=== PATIENT | female | born 1965 | race Caucasian/White ===

== ENCOUNTER 2019-12-03 11:39 | Emergency (ER) | payer BC, SELFPAY ==
--- NOTE | 2019-12-03 11:44 | ED_ITS ---
Entered by Carolyn Fuentes, acting as scribe for Chris Rojas DO HPI - Neuro Symptoms/Deficit General: Chief Complaint: Neuro Symptoms/Deficit Stated Complaint: TINGLE NUMBNESS R SIDE MOUTH & ARM Time Seen by Provider: 12/03/19 11:44 Source: patient Mode of arrival: EMS Limitations: no limitations History of Present Illness: HPI Narrative: 54 yo f came to the er by [facility] Ems For numbness and paul in rt side of face and arm. Onset was today. Pt states that she was setting at her computer and she started to feel light headed and her mouth and rt arm numbness. Pt states that she had slid down into the floor unable to walk at that time. Pts symptoms have almost resolved. Pt states that she had surgery on her rt foot in October of this year. Pt states that she is not feeling ill any other way. Onset (ago): day(s) (today) Location: right arm and other (rt side of mouth) History of same: No Severity: mild Quality: numb and tingling Relieving factors: none Exacerbating factors: none Context: sudden onset Associated symptoms: Reports no associated symptoms; Deny chest pain, malaise, nausea or vomiting Review of Systems General: Reports: other (negative unless marked) Const: Denies: fever, chills, body aches, change in appetite, fatigue or malaise ENMT: Denies: throat pain, ear pain, nasal discharge or nasal congestion Card: Denies: chest pain, edema, shortness of breath on exertion or shortness of breath when lying down Resp: Denies: shortness of breath, productive cough or non-productive cough GI: Denies: abdominal pain, nausea, vomiting, vomiting blood, coffee grounds in vomit, diarrhea, constipation, bloating, blood in stool or black tarry stool : Denies: flank pain, difficulty urinating, painful urination, urinary frequency or urinary urgency Skin/Breast: Denies: rash or itching Neuro: Reports: numbness in extremities (rt arm) PFSH ED PFSH: Social History Smoking and tobacco status: never smoked NIH stroke score NIHSS: Level Of Consciousness - 1a: 0 Level Of Consciousness Questions - 1b: Both Correct Level Of Consciousness Commands - 1c: Both Correct Best Gaze - 2: Normal Visual Mendoza - 3: No Visual Loss Facial Palsy - 4: Normal Motor Arm Right - 5: No Drift Motor Arm Left - 5: No Drift Motor Leg Right - 6: No Drift Motor Leg Left - 6: No Drift Limb Ataxia - 7: Absent Sensory - 8: Mild To Moderate Loss Best Language - 9: No Aphasia Dysarthia - 10: Normal Extinction And Inattention - 11: 0 Score: Total Score: 1 Physical Exam Const: COMMON NORMALS: average body habitus, oriented x3 and alert GENERAL APPEARANCE: cooperative, comfortable, well kempt and well developed NUTRITIONAL APPEARANCE: obese ORIENTATION/CONSCIOUSNESS: Yes awake, Yes oriented to person and Yes oriented to place HENMT: COMMON NORMALS: normocephalic, head/scalp atraumatic, EAC's normal, TM's normal bilaterally, external nose normal, moist oral mucous membranes and oropharynx normal HEAD & SCALP: normocephalic and atraumatic NOSE: external nose normal EXTERNAL AUDITORY CANAL: EAC's normal TYMPANIC MEMBRANE: TM's normal bilaterally MOUTH: oral and palatal mucosa normal, lip normal and tongue normal THROAT: posterior oropharynx normal and tonsils normal OTHER: Subtle decreased sensation on the right side of the face mostly around the mouth. Sensation on the eye and forehead are normal Eye: COMMON NORMALS: PERRL, EOMs intact bilaterally, conjunctivae normal and no scleral icterus CONJUNCTIVA: Yes conjunctivae normal PUPIL: Yes PERRL Neck/C-Spine: COMMON NORMALS: full ROM, no lymphadenopathy, supple, no meningeal signs and thyroid normal THYROID: thyroid normal and asymmetrical Lymph: LYMPHATIC: no lymphadenopathy noted Resp: COMMON NORMALS: normal respiratory effort, no retractions, no use of accessory muscles and clear to auscultation bilaterally AUSCULTATION: clear to auscultation bilaterally Cardio: COMMON NORMALS: regular rate and regular rhythm RATE: regular rate RHYTHM: regular rhythm HEART SOUNDS: no murmurs GI: COMMON NORMALS: normal to inspection, nondistended, normoactive bowel sounds, soft to palpation and no hepatosplenomegaly PALPATION: Yes soft and Yes no hepatosplenomegaly : COMMON NORMALS: Yes no CVA tenderness BLADDER/KIDNEY EXAM: Yes no CVA tenderness Back/Pelvis: COMMON NORMALS: no CVA tenderness LUMBAR SPINE/LOWER BACK: Yes normal to inspection Extremity: COMMON NORMALS: no clubbing, cyanosis or edema, no calf tenderness and no pedal edema Neuro: COMMON NORMALS: oriented x3 SENSORIUM/ORIENTATION: Yes alert, Yes oriented to person and Yes oriented to place MENINGEAL SIGNS: Yes no meningeal signs Psych: APPEARANCE: Yes well kempt Skin: COMMON NORMALS: no rashes or lesions noted and skin turgor normal GENERAL SKIN EXAM: no rashes or lesions noted and turgor normal Course ED course: Her symptoms have resolved. Her blood pressure somewhat better with a systolic of 180. We will go ahead and discharge her home with amlodipine 5 mg daily aspirin daily set up for outpatient echo carotid and MRI of the head. In addition to that we will have her follow-up with her blood pressure and the results of these tests with Dr. Holliday. Vital Signs: Vital signs: Vital Signs Temperature 98.4 F 12/03/19 11:46 Pulse Rate 79 12/03/19 11:46 Blood Pressure 222/112 12/03/19 11:46 Pulse Oximetry 99 12/03/19 11:46 MDM - Neuro Symptoms/Deficit Lab Data: Labs: Lab Results 12/03/19 12/03/19 12/03/19 Range/Units 12:43 12:43 13:15 WBC 9.0 (4.0-10.0) 10^3/ uL RBC 4.31 (4.1-5.3) 10^6/u L Hgb 12.7 (11.5-15.3) g/dL Hct 39.7 (37.0-47.0) % MCV 92.1 (81-99) fL MCH 29.5 (28.0-34.0) pg MCHC 32.0 (30.0-36.0) g/dL RDW 12.2 (12.1-15.1) % Plt Count 326 (130-400) 10^3/c mm MPV 10.2 (7.4-10.4) fL Neut % (Auto) 75.5 % Lymph % (Auto) 17.0 % Dillon % (Auto) 5.3 % Eos % (Auto) 1.2 % Baso % (Auto) 0.7 % Neut # (Auto) 6.8 (1.8-7.7) 10^3/u L Lymph # (Auto) 1.5 (0.8-4.8) 10^3/u L Dillon # (Auto) 0.5 (0.2-0.9) 10^3/u L Eos # (Auto) 0.1 (0.0-0.8) 10^3/u L Baso # (Auto) 0.1 (0.0-0.1) 10^3/u L Nucleated RBC % (a uto) 0 % Nucleated RBCs # 0.0 /100WBC PT (10.5-13.3) SECO NDS INR (0.8-1.2) APTT (23.9-36.7) SECO NDS Sodium (136-145) mmol/L Potassium (3.5-5.1) mmol/L Chloride (98-107) mmol/L Carbon Dioxide (22-29) mmol/L Anion Gap (5-19) BUN (6-20) mg/dL Creatinine (0.5-0.9) mg/dL GFR Calculation (90-130) mL/min Glucose (65-115) mg/dL Calcium (8.5-10.5) mg/dL Total Bilirubin (0.15-1.2) mg/dL AST (0-32) U/L ALT (0-33) U/L Alkaline Phosphata se (35-105) IU/L Total Protein (6.6-8.7) g/dL Albumin (3.5-5.2) g/dL Globulin (1.3-4.6) g/dL Urine Color Yellow (Yellow) Urine Appearance Clear (CLEAR) Urine pH 6 (5-7) Ur Specific Gravit y 1.015 (1.005-1.030) Urine Protein Neg (Negative) Urine Glucose (UA) Norm (Normal) Urine Ketones Negative (Negative) Urine Blood Neg (Negative) Urine Nitrate Negative (Negative) Urine Bilirubin Neg (NEGATIVE) Urine Urobilinogen Norm (Negative) mg/dL Ur Leukocyte Tory ase Negative (Negative) Urine Opiates Scre en Negative (Negative) ng/mL Ur Barbiturates Sc reen Negative (Negative) ng/mL Ur Phencyclidine S crn Negative (Negative) ng/mL Ur Amphetamines Sc reen Negative (Negative) ng/mL U Benzodiazepines Scrn Negative (Negative) ng/mL Urine Cocaine Scre en Negative (Negative) ng/mL U Marijuana (THC) Screen Negative (Negative) ng/mL 12/03/19 12/03/19 Range/Units 13:15 13:15 WBC (4.0-10.0) 10^3/ uL RBC (4.1-5.3) 10^6/u L Hgb (11.5-15.3) g/dL Hct (37.0-47.0) % MCV (81-99) fL MCH (28.0-34.0) pg MCHC (30.0-36.0) g/dL RDW (12.1-15.1) % Plt Count (130-400) 10^3/c mm MPV (7.4-10.4) fL Neut % (Auto) % Lymph % (Auto) % Dillon % (Auto) % Eos % (Auto) % Baso % (Auto) % Neut # (Auto) (1.8-7.7) 10^3/u L Lymph # (Auto) (0.8-4.8) 10^3/u L Dillon # (Auto) (0.2-0.9) 10^3/u L Eos # (Auto) (0.0-0.8) 10^3/u L Baso # (Auto) (0.0-0.1) 10^3/u L Nucleated RBC % (a uto) % Nucleated RBCs # /100WBC PT 13.20 (10.5-13.3) SECO NDS INR 0.97 (0.8-1.2) APTT 29.2 (23.9-36.7) SECO NDS Sodium 140 (136-145) mmol/L Potassium 4.0 (3.5-5.1) mmol/L Chloride 103 (98-107) mmol/L Carbon Dioxide 24 (22-29) mmol/L Anion Gap 17.0 (5-19) BUN 11 (6-20) mg/dL Creatinine 1.0 H (0.5-0.9) mg/dL GFR Calculation 57.8 L (90-130) mL/min Glucose 115 (65-115) mg/dL Calcium 9.8 (8.5-10.5) mg/dL Total Bilirubin 0.3 (0.15-1.2) mg/dL AST 21 (0-32) U/L ALT 28 (0-33) U/L Alkaline Phosphata se 92 (35-105) IU/L Total Protein 7.4 (6.6-8.7) g/dL Albumin 4.2 (3.5-5.2) g/dL Globulin 3.2 (1.3-4.6) g/dL Urine Color (Yellow) Urine Appearance (CLEAR) Urine pH (5-7) Ur Specific Gravit y (1.005-1.030) Urine Protein (Negative) Urine Glucose (UA) (Normal) Urine Ketones (Negative) Urine Blood (Negative) Urine Nitrate (Negative) Urine Bilirubin (NEGATIVE) Urine Urobilinogen (Negative) mg/dL Ur Leukocyte Tory ase (Negative) Urine Opiates Scre en (Negative) ng/mL Ur Barbiturates Sc reen (Negative) ng/mL Ur Phencyclidine S crn (Negative) ng/mL Ur Amphetamines Sc reen (Negative) ng/mL U Benzodiazepines Scrn (Negative) ng/mL Urine Cocaine Scre en (Negative) ng/mL U Marijuana (THC) Screen (Negative) ng/mL Imaging Data^: CT Head: Radiologist's impression: [place] [address] CT Scan Report Signed Patient: Jose Alfredo Mcclellan #: [id number] : 1965Acct#:[id number] Age/Sex: 54 / FADM Date: 12/03/19 Loc: ERRoom/Bed: Attending Dr: Ordering Provider/Ordering MD: Chris Rojas DO Date of Service: 12/03/19 Procedure(s): CT head wo con* [id number] Accession Number(s): [id number] Report Number: [id number] WS: [id number] CT HEAD NONCONTRAST HISTORY: Symptoms of Acute Stroke TECHNIQUE: Contiguous axial imaging performed through the brain in 2.5 mm imaging. Bone and soft tissue windows. Sagittal and coronal reformats reviewed. All CT scans at [facility] use at least one of these dose optimization techniques: automated exposure control; mA and/or kV adjustment per patient size (includes targeted exams where dose is matched to clinical indication); or iterative reconstruction. DLP: 873.63 mGy.cm COMPARISON: None available. No acute intracranial hemorrhage, midline shift or mass effect. Prior lacunar infarcts in the basal ganglia versus prominent perivascular spaces. No atrophy or prior infarcts or herniation. Ventricles: Normal size with no hydrocephalus. Cavum septum pellucidum. No inferior displacement of cerebellar tonsils. Paranasal sinuses: As visualized are clear. Mastoid air cells: Well pneumatized. Calvarium and scalp: Skull is intact with no soft tissue edema or swelling. Notified Chris Rojas DO at 12/03/2019 1:[address]/CT head wo con* [id number] IMPRESSION: 1. No acute intracranial hemorrhage or edema. 2. Prior lacunar infarcts in the basal ganglia versus prominent perivascular spaces. Dictated By:Vikki Moore DO Signed By:Vikki Moore DOSigned Date/Time:12/03/19 1323 Discharge Plan Discharge Clinical Impression: Transient cerebral ischemia, Hypertension Condition: Stable Prescriptions: New amlodipine 5 mg tablet 5 mg PO DAILY Qty: 20 RF: 0 aspirin 81 mg tablet,delayed release (DR/EC) 81 mg PO DAILY Qty: 30 RF: 0 No Action No Known Home Medications RF: 0 Discharge Orders: Discharge Order (Routine); Ordered 12/03/19 Ordered By: Chris Rojas Referrals: Devi Holliday MD [Family Provider] - Discharge Diet: Usual diet Discharge Activity: Resume usual activity Activity Restrictions/Additional Instructions: Follow-up with your primary care doctor for further evaluation within the next 1 week. You also need follow-up on your blood pressure. Coding Level of Care Code ED Spring Floor Service Worker for Chg Fwd Exam Comprehensive The documentation recorded by the Alfredo lewis Stephanie Lyn, accurately reflects the service I personally performed and the decisions made by Crystal castaneda Curtis L, DO Dec 03, 2019 11:39
[2019-12-03 11:46] VITALS: BP 222/112; PULSE 79; TEMP 36.9; O2SAT 99; BMI 36.0
--- NOTE | 2019-12-03 12:03 | CT_ITS ---
WS: [id number] CT HEAD NONCONTRAST HISTORY: Symptoms of Acute Stroke TECHNIQUE: Contiguous axial imaging performed through the brain in 2.5 mm imaging. Bone and soft tiss ue windows. Sagittal and coronal reformats reviewed. All CT scans at [facility] use at ast one of these dose optimization techniques: automated exposure control; mA and/or kV adjustment pe r patient size (includes targeted exams where dose is matched to clinical indication); or iterative r econstruction. DLP: 873.63 mGy.cm COMPARISON: None available. No acute intracranial hemorrhage, midline shift or mass effect. Prior lacunar infarcts in the basal g anglia versus prominent perivascular spaces. No atrophy or prior infarcts or herniation. Ventricles: Normal size with no hydrocephalus. Cavum septum pellucidum. No inferior displacement of cerebellar tonsils. Paranasal sinuses: As visualized are clear. Mastoid air cells: Well pneumatized. Calvarium and scalp: Skull is intact with no soft tissue edema or swelling. Notified Chris Rojas DO at 12/03/2019 1:[address]/CT head wo con* [id number] IMPRESSION: 1. No acute intracranial hemorrhage or edema. 2. Prior lacunar infarcts in the basal ganglia versus prominent perivascular s paces.
--- NOTE | 2019-12-03 12:03 | ECG_ITS ---
Measurements Intervals [place] Rate: 67 P: 56 WA: 154 QRS: 44 QRSD: 98 T: 86 QT: 413 QTc: 439 SINUS RHYTHM WITH OCCASIONAL SUPRAVENTRICULAR PREMATURE COMPLEXES NONSPECIFIC ST & T-WAVE ABNORMALITY No previous ECG available for comparison Electronically Signed On 12-03-2019 16:50:22 REFUELING RAMP ATTENDANT by Willi Ríos M.D. [email or web address]
[2019-12-03 12:53] LABS: Add Urine Microscopic? NO
[2019-12-03] MEDS: labetalol 5 mg/mL SDV 20mL 10 MG IV (12:56)
[2019-12-03 13:17] LABS: Amphetamines Screen Urine Negative (Negative); Barbiturates Screen Urine Negative (Negative); Benzodiazepines Screen Urine Negative (Negative); Cocaine Screen Urine Negative (Negative); Opiate Screen Urine Negative (Negative); PCP Screen Urine Negative (Negative); THC Screen Urine Negative (Negative)
[2019-12-03 13:20] LABS: Bilirubin Urine Neg (NEGATIVE); Blood Urine Neg (Negative); Glucose Urine UA Norm (Normal); Ketones Urine Negative (Negative); Leukocyte Esterase Urine Negative (Negative); Nitrate Urine Negative (Negative); Protein Urine Neg (Negative); Specific Gravity, Urine 1.015 (1.005-1.030); Urine Appearance Clear (CLEAR); Urine Color Yellow (Yellow); Urobilinogen Urine Norm (Negative); pH Urine 6 (5-7)
[2019-12-03 13:24] LABS: Basophils # 0.1 10^3/uL (0.0-0.1); Basophils % 0.7 %; Eosinophils # 0.1 10^3/uL (0.0-0.8); Eosinophils % 1.2 %; Hematocrit 39.7 % (37.0-47.0); Hemoglobin 12.7 g/dL (11.5-15.3); Lymphocytes # 1.5 10^3/uL (0.8-4.8); Mean Corpuscular Hemoglobin 29.5 pg (28.0-34.0); Mean Corpuscular Volume 92.1 fL (81-99); Mean Platelet Volume 10.2 fL (7.4-10.4); Monocytes # 0.5 10^3/uL (0.2-0.9); Monocytes % 5.3 %; Neutrophils # 6.8 10^3/uL (1.8-7.7); Neutrophils % 75.5 %; Nucleated Red Blood Cells % 0 %; Platelet Count 326 10^3/cmm (130-400); Red Blood Count 4.31 10^6/uL (4.1-5.3); Red Cell Distribution Width 12.2 % (12.1-15.1)
[2019-12-03 14:15] LABS: INR 0.97 (0.8-1.2); Partial Thromboplastin Time 29.2 SECONDS (23.9-36.7)
[2019-12-03 14:39] LABS: Alanine Aminotransferase 28 U/L (0-33); Albumin Level 4.2 g/dL (3.5-5.2); Alkaline Phosphatase 92 IU/L (35-105); Aspartate Amino Transferase 21 U/L (0-32); Blood Urea Nitrogen 11 mg/dL (6-20); Calcium 9.8 mg/dL (8.5-10.5); Carbon Dioxide 24 mmol/L (22-29); Chloride 103 mmol/L (98-107); Globulin 3.2 g/dL (1.3-4.6); Glomerular Filtration Rate 57.8 mL/min (90-130); Glucose 115 mg/dL (65-115); Sodium 140 mmol/L (136-145); Total Bilirubin 0.3 mg/dL (0.15-1.2); Total Protein 7.4 g/dL (6.6-8.7)
[2019-12-03 15:32] VITALS: BP 172/83; PULSE 71; RESP 20; O2SAT 98
--- NOTE | 2019-12-05 10:08 | DCPLANNER ---
kennel manager dog track had message to schedule some out patient testing for an MRI of the head, an echo, and a carotid doppler. kennel manager dog track spoke with patient to confirm that patient did want the testing and to confirm who patient sees for primary care. Patient stated that she want the testing, and her primary care physician is Dr. Holliday. Patient also stated that she thought that her primary care may be ordering those tests as well. kennel manager dog track faxed orders to centralized scheduling, will call for appointment information.
--- NOTE | 2019-12-12 08:16 | DCPLANNER ---
Patient has a follow up appointment scheduled for Tuesday, December 31, 2019 at 8:00. Centralized scheduling called patient with appointment information.
--- NOTE | 2020-02-24 07:39 | DCPLANNER ---
Patient attended the appointments for a carotid doppler and echo scheduled for 12.31.19.
== END 2019-12-03 15:32 | disposition home or self-care (01) ==
PROVIDERS: Emergency Provider Family Medicine; Family Provider Family Medicine
DX: G45.9 Transient cerebral ischemic attack, unspecified (principal); I10 Essential (primary) hypertension
CPT/HCPCS: 36415; 70450; 80053; 80307; 81003; 85025; 85610; 85730; 93005; 96374; 99283; 99284; J3490

== ENCOUNTER 2019-12-31 07:11 | Outpatient (CLI) | payer BC, SELFPAY ==
--- NOTE | 2019-12-31 | USCV_ITS ---
Barbi Mcclellan Age: 54 Gender: F : 1965 Exam Date: 12/31/2019 07:30 Ordering Phys: Devi Holliday MD Technologist: Lorraine Reinoso Exam Location: [facility] [place]_ Indication: tia Risk Factors: Previous Vascular Surgery: Right Brachial BP: / Left Brachial BP: / Right Left Velocity (cm/s) Spectral Plaque Velocity (cm/s) Spectral Plaque Syst/Diast Broadening Syst/Diast Broadening 56.20/ 23.20 Prox CCA 54.90 / 18.90 48.50/ 14.30 Mid CCA 60.10 / 22.00 58.40/ 20.90 Distal CCA 49.10 / 15.40 52.80/ 22.40 Prox ICA 44.90 / 14.10 76.10/ 29.50 Mid ICA 56.40 / 23.00 73.40/ 33.10 Distal ICA 59.30 / 24.50 119.10 ECA 82.10 1.57 ICA/CCA 0.99 Antegrade Vertebral Antegrade 34.00/ 15.20 cm/s 36.10/ 13.60 cm/s Tri Subclavian Tri 67.50 88.70 FINDINGS Comparison: none available. No significant amount of calcified plaque or intimal thickening identified. No significant elevation of systolic or diastolic velocities. Waveforms are normal. CONCLUSIONS Normal carotid doppler ultrasound. Dr. Vikki Moore DO (Electronically Signed) Final Date: 01 January 2020 12:49 S
--- NOTE | 2019-12-31 | USCV_ITS ---
Barbi Mcclellan Age: 54 Gender: F : 1965 Exam Date: 12/31/2019 07:18 Ordering Phys: Devi Holliday MD Technologist: Lorraine Reinoso Exam Location: [facility] [place] Indication: TIA BP: 146 / 65 HR: 66 Rhythm: Sinus Technical Quality: Adequate MEASUREMENTS (Male / Female) Normal Values 2D ECHO LV Diastolic Diameter PLAX 4.5 cm 4.2 - 5.9 / 3.9 - 5.3 cm LV Systolic Diameter PLAX 2.6 cm LV Chamber Size 4.0 cm IVS Diastolic Thickness 1.5 cm 0.6 - 1.0 / 0.6 - 0.9 cm IVS Systolic Thickness 2.1 cm LVPW Diastolic Thickness 1.8 cm 0.6 - 1.0 / 0.6 - 0.9 cm LVPW Systolic Thickness 2.3 cm RV Chamber Size 3.0 cm LVOT Diameter 2.1 cm LV Ejection Fraction 2D Teich 72.8 % LV Ejection Fraction MOD 2C 58.9 % LV Ejection Fraction 2C AL 60.3 % LA Diameter 3.7 cm LA Width 3.5 cm LA Height 3.8 cm RA Width 2.8 cm RA Height 2.3 cm Aorta at Sinotubular Diameter 3.1 cm M-MODE LV Diastolic Diameter MM 5.0 cm 4.2 - 5.9 / 3.9 - 5.3 cm LV Systolic Diameter MM 3.1 cm LV Ejection Fraction MM Teich 68.5 % IVS Diastolic Thickness MM 1.1 cm 0.6 - 1.0 / 0.6 - 0.9 cm IVS Systolic Thickness MM 1.5 cm LVPW Diastolic Thickness MM 1.5 cm 0.6 - 1.0 / 0.6 - 0.9 cm LVPW Systolic Thickness MM 1.5 cm Aortic Annulus Diameter 2.9 cm LA Ao Ratio MM 1.3 MV E Point Septal Separation 0.8 cm DOPPLER AV Peak Velocity 88.0 cm/s LVOT Peak Velocity 81.0 cm/s AV Area Cont Eq vti 3.3 cm squared AV Area Cont Eq pk 3.1 cm squared MV Area PHT 3.0 cm squared Mitral E to A Ratio 1.3 MV E' Velocity 9.0 cm/s Mitral E to MV E' Ratio 8.0 Mitral E to LV E' Lateral Ratio 7.0 Mitral E to LV E' Septal Ratio 9.3 TR Peak Velocity 237.0 cm/s TR Peak Gradient 22.5 mmHg TV Peak E Velocity 75.0 cm/s Right Atrial Pressure 3.0 mmHg Pulmonary Artery Systolic Pressu 25.5 mmHg PV Peak Velocity 94.0 cm/s RV Acceleration Time 0.1 s RV Ejection Time 0.4 s RV AcT/ET 0.3 FINDINGS Left Ventricle Normal left ventricular cavity size. Normal left ventricular systolic function. No regional wall motion abnormalities. Left ventricular ejection fraction is estimated at 68 %. Normal diastolic function. Right Ventricle The right ventricle is normal in size and function. Right Atrium The right atrium is normal in size. Left Atrium The left atrium is normal in size. Mitral Valve Mildly thickened mitral valve. No mitral valve stenosis. Mild mitral valve regurgitation. Aortic Valve Mild aortic valve calcification. No aortic valve stenosis. No aortic valve regurgitation. Tricuspid Valve Structurally normal tricuspid valve without significant stenosis or regurgitation. Pulmonary artery systolic pressure is normal. Pulmonic Valve Structurally normal pulmonic valve without significant stenosis. There is no pulmonic regurgitation. Pericardium Normal pericardium without effusion. Aorta Normal ascending aorta dimension. CONCLUSIONS 1-Normal left ventricular cavity size. Normal left ventricular systolic function. No regional wall motion abnormalities. Left ventricular ejection fraction is estimated at 68 %. Normal diastolic function. 2-Mild aortic valve calcification. No aortic valve stenosis. No aortic valve regurgitation. 3-There is no pericardial effusion. 4-Pulmonary artery systolic pressure is within normal limits. 5-Right atrial pressure is around 5 mm of mercury. 6-There are no prior echocardiogram studies to compare. Aman Valdovinos MD (Electronically Signed) Final Date: 01 January 2020 11:10 S
== END 2019-12-31 07:12 | disposition home or self-care (01) ==
LOC: US 07:12
PROVIDERS: Family Provider Family Medicine; Visit Provider Family Medicine
DX: G45.9 Transient cerebral ischemic attack, unspecified (principal)
CPT/HCPCS: 93306; 93880

== ENCOUNTER 2020-05-14 10:34 | Outpatient (CLI) | payer BC, SELFPAY ==
--- NOTE | 2020-05-14 10:39 | MM_ITS ---
WS: [id number] Bilateral screening digital mammogram, 05/14/2020 Clinical Data: SCREENING Comparison: 05/01/2017, 03/28/2017. Findings: The breast parenchymal pattern shows heterogeneous density No spiculated masses or clustered calcific ations are seen. There are no secondary signs of carcinoma. MM/[place] [id number] Impression: 1. Negative bilateral mammogram unchanged. 2. Recommend annual screening mammograms. BIRADS: 1-Negative FOLLOW UP: 1 Year Follow-up The CAD plan checker was used.
== END 2020-05-14 10:35 | disposition home or self-care (01) ==
LOC: RADSHAW 10:38
PROVIDERS: PCP Family Medicine; Visit Provider Family Medicine
DX: Z12.31 Encounter for screening mammogram for malignant neoplasm of breast (principal)
CPT/HCPCS: 77067

== ENCOUNTER 2020-06-22 12:00 | Outpatient (CLI) | payer BC, SELFPAY | END 2020-06-22 12:01 | disposition home or self-care (01) | LOC: SLEEP 06-23 13:43 | PROVIDERS: PCP Family Medicine; Visit Provider Family Medicine | DX: G47.33 Obstructive sleep apnea (adult) (pediatric) (principal) | CPT/HCPCS: G0399 ==

== ENCOUNTER 2021-08-05 07:18 | Outpatient (CLI) | payer OTHER, SELFPAY ==
--- NOTE | 2021-08-05 07:25 | MM_ITS ---
WS: [id number] Bilateral screening digital mammogram, 08/05/2021 Clinical Data: SCREEN Comparison: 05/14/2020, 05/01/2017, 03/28/2017. Findings: The breast parenchymal pattern shows heterogeneous density No spiculated masses or clustered calcific ations are seen. There are no secondary signs of carcinoma. MM/[place] [id number] Impression: 1. Negative bilateral mammogram unchanged. 2. Recommend annual screening mammograms. BIRADS: 1-Negative FOLLOW UP: 1 Year Follow-up The CAD lap checker was used.
== END 2021-08-05 07:19 | disposition home or self-care (01) ==
LOC: RADSHAW 07:20
PROVIDERS: PCP Family Medicine; Visit Provider Family Medicine
DX: Z12.31 Encounter for screening mammogram for malignant neoplasm of breast (principal)
CPT/HCPCS: 77067

== ENCOUNTER 2022-11-22 11:15 | Outpatient (CLI) | payer OTHER, SELFPAY ==
--- NOTE | 2022-11-22 11:24 | MM_ITS ---
WS: [id number] VIEWS: MLO and CC views both breasts. 3D digital tomosynthesis is also included in this exam. Comparison made with prior exam of 03/28/2017, 05/14/2020, 08/05/2021,. Findings: There was no sign of mass, architectural distortion or suspicious calcification in either breast. He terogeneously dense MM/[place] [id number] Impression: BI-RADS: 2-Benign FOLLOW-UP: 1 Year Follow-up This mammogram was also analyzed by the Computer Aided Detection System R2 Imag e Crime Scene Investigator.
== END 2022-11-22 11:16 | disposition home or self-care (01) ==
LOC: RAD 11:18
PROVIDERS: PCP Family Medicine; Visit Provider Family Medicine
DX: Z12.31 Encounter for screening mammogram for malignant neoplasm of breast (principal)
CPT/HCPCS: 77063; 77067

== ENCOUNTER 2023-08-27 12:26 | Outpatient (CLI) | payer OTHER, SELFPAY ==
--- NOTE | 2023-08-27 | ECG_ITS ---
[facility] Test Date: 2023-08-27 Pat Name: Barbi Mcclellan Department: Room: Gender: Female Reception Clerk: Michelet Galicia : 1965 Requested By: Devi Light Order Number: [id number] Juani MD: Flores Lopez M.D. Interpretive Statements NAME OF STUDY: TREADMILL STRESS TEST INDICATION: Chest Pain, PROCEDURE: At the baseline, the patient's blood pressure was 178/63 with a heart rate of 63. The baseline electrocardiogram showed normal sinus rhythm with normal ST-Ts.. The patient exercised for 5 minutes and 1 second on a modified Sean protocol. Patient attained a maximum heart rate of 159 beats per minute(97% of the maximum predicted heart rate) with a blood pressure at the peak exercise of 207/63 mm Hg. The EKG at the peak exercise revealed 1 to 1-1/[address] depressions in leads II, III, aVF, V4, V5 and V6. Patient did not have any chest pain or any significant cardiac arrhythmias with the exercise During the recovery phase, there were no new changes. Blood pressure at the end of the recovery phase was 203/62 mm Hg with a heart rate of 101 per minute. CONCLUSION: 1. Borderline abnormal EKG response to treadmill exercise, suggesting of inferolateral wall ischemia 2. No exercise-induced chest pain or cardiac arrhythmia 3. Impaired exercise tolerance, attained a maximum of 5.6METs 4. The Melgoza treadmill score was -6 (moderate) Electronically Signed On 09-13-2023 9:02:49 SIGNALS INTELLIGENCE ANALYSIS MANAGER by Flores Lopez M.D. [email or web address]
[2023-08-27 12:58] VITALS: BMI 32.5
[2023-08-27 13:26] VITALS: BP 203/62; PULSE 97
== END 2023-08-27 12:27 | disposition home or self-care (01) ==
PROVIDERS: PCP Family Medicine; Visit Provider Family Medicine
DX: R07.9 Chest pain, unspecified (principal); R94.39 Abnormal result of other cardiovascular function study
CPT/HCPCS: 93017

== ENCOUNTER → 2023-10-29 12:00 | Outpatient (BNVA) | payer OTHER, SELFPAY | PROVIDERS: PCP Family Medicine; Referring Provider Family Medicine; Visit Provider Internal Medicine Cardiovascular Disease | DX: E78.5 Hyperlipidemia, unspecified (principal) | CPT/HCPCS: 80061; 80076 ==

== ENCOUNTER 2023-11-01 15:48 | Outpatient (CLI) | payer OTHER, SELFPAY ==
--- NOTE | 2023-11-01 15:52 | XRR_ITS ---
PROCEDURE INFORMATION: Exam: XR Chest Exam date and time: 11/01/2023 4:06 PM Age: 58 years old Clinical indication: Pain; Other: Weightloss; Other: Unspecified; Additional info: Chest pain/weight loss TECHNIQUE: Imaging protocol: Radiologic exam of the chest. Views: 2 views. COMPARISON: No relevant prior studies available. FINDINGS: Lungs: No focal consolidation. Pleural spaces: No evidence of pneumothorax. No evidence of pleural effusion. Heart/Mediastinum: Cardiomediastinal silhouette is within normal limits. Bones/joints: No evidence of acute osseous abnormality. XR/XR chest 2V insp/exp [id number] IMPRESSION: 1. No acute cardiopulmonary abnormality.
== END 2023-11-01 15:49 | disposition home or self-care (01) ==
LOC: RAD 15:49
PROVIDERS: PCP Family Medicine; Visit Provider Internal Medicine Cardiovascular Disease
DX: R63.4 Abnormal weight loss (principal); R07.9 Chest pain, unspecified
CPT/HCPCS: 71046

== ENCOUNTER 2024-01-15 14:50 | Outpatient (CLI) | payer OTHER, SELFPAY ==
--- NOTE | 2024-01-15 14:53 | MM_ITS ---
WS: [id number] BILATERAL 3D TOMOSYNTHESIS DIGITAL SCREENING MAMMOGRAPHY WITH CAD CLINICAL INFORMATION: SCREENING HISTORY: Screening mammogram. No current complaints. COMPARISON: 2022 TECHNIQUE: Bilateral CC and MLO views. FINDINGS: The breasts are composed of heterogeneous fibroglandular density tissue, which can limit the detectio n of small underlying mass lesions. No suspicious mass, asymmetry, calcifications, or architectural d istortion. No evidence of malignancy. IMPRESSION: MM/[place] [id number] BI-RADS: 1-Negative FOLLOW UP: 1 Year Follow-up Recommend return to annual screening mammography.
== END 2024-01-15 14:51 | disposition home or self-care (01) ==
LOC: RAD 14:50
PROVIDERS: PCP Family Medicine; Visit Provider Family Medicine
DX: Z12.31 Encounter for screening mammogram for malignant neoplasm of breast (principal)
CPT/HCPCS: 77063; 77067

== ENCOUNTER → 2024-02-13 16:01 | Outpatient (BNVA) | payer OTHER, SELFPAY | PROVIDERS: PCP Family Medicine; Visit Provider Internal Medicine Cardiovascular Disease | DX: R06.02 Shortness of breath (principal); R94.39 Abnormal result of other cardiovascular function study | CPT/HCPCS: 80048; 83880 ==

== ENCOUNTER 2024-03-06 09:28 | Outpatient (CLI) | payer OTHER, SELFPAY ==
--- NOTE | 2024-03-06 | ECG_ITS ---
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 Interpretive Statements NAME OF STUDY: EXERCISE SESTAMIBI STRESS TEST INDICATION: Chest Pain PROCEDURE: The baseline electrocardiogram showed normal sinus rhythm with normal ST-Ts. At the baseline, the patient's blood pressure was 154/81 mm Hg with a heart rate of 70. The patient exercised for 7 minutes on a standard Sean protocol. Patient attained a maximum heart rate of 152 beats per minute(93% of the maximum predicted heart rate) with a blood pressure at the peak exercise of 170/40 mm Hg. The EKG at the peak exercise revealed 1 to [address] depressions in leads V4 to V6, II, III and aVF. Patient did not have any chest pain or any significant arrhythmis with the exercise Sestamibi was injected 1 minute prior to the peak exercise During the recovery phase, there were no new changes. The EKG almost returned back to baseline Blood pressure at the end of the recovery phase was 168/61 mm Hg with a heart rate of 86 per minute. CONCLUSION: 1. Abnormal EKG response to [treadmill exercise suggesting inferior and anterolateral ischemia 2. No exercise-induced chest pain or cardiac arrhythmia 3. Fair exercise tolerance, attained a maximum of 10.2 METs 4. Sestamibi/Sestamibi perfusion results pending; see separate report. Electronically Signed On 03-09-2024 21:11:24 CDT by Flores Lopez M.D. [id number]
--- NOTE | 2024-03-06 09:51 | NMCV_ITS ---
NM fan perf SPECT r/s* [id number] Barbi Mcclellan Age: 58 Gender: F : 1965 Exam Date: 03/06/2024 09:51 Ordering Phys: Flores Lopez MD ([email or web address]) Technologist: CHRISTINA Cm Exam Location: [facility] Indications: ABNORMAL CARDIOVASCULAR FUNCTION STUDY STRESS TEST Please see separate stress test report in [facility] for full findings IMAGE PROTOCOL Rest/Stress 1 Exercise Day Radiopharmaceutical Dose (mCi) Administration Site Administered by Rest: Tc-99m 10.6 IV CHRISTINA Simms Sestamibi Stress:Tc-99m 32.8 IV CHRISTINA Simms Sestamibi Rest: 06-Mar-2024 60 Discovery 630 Stress: 06-Mar-2024 30 Discovery 630 Radiopharmaceutical was injected at 88 % maximum heart rate. Images obtained in supine and prone position. SPECT RESULTS Technical Quality: Excellent Raw Data Analysis: Normal Image Corrections: No attenuation or motion correction applied Summed Stress Score: 0 Summed Rest Score: 1 Summed Difference Score: 0 PERFUSION FINDINGS Small area of slightly decreased tracer uptake was noted in the mid anteroseptal region with no significant reversibility FUNCTIONAL RESULTS (calculated via Gated SPECT) Stress Image LV EF (%): 70 Stress EDV (mL):140 TID: 0.88 Stress ESV (mL):42 FUNCTIONAL FINDINGS: Segmental wall motion analysis revealing no gross wall motion abnormalities IMPRESSIONS 1. Myocardial perfusion imaging revealing small area of persistent slightly decreased tracer uptake involving the mid anteroseptal region, suggestive of myocardial scarring versus attenuation artifact 2. Normal LV ejection fraction of 70% 3. LV wall motion analysis revealing no gross wall motion abnormalities. 4. Normal LV volume Low probability for coronary ischemia, based on the above findings Dr Flores Lopez MD FAC (Electronically Signed) Final Date: 06 March 2024 22:19 S
[2024-03-06 10:00] VITALS: BMI 34.8
[2024-03-06 11:51] VITALS: BP 154/72; PULSE 84
== END 2024-03-06 09:29 | disposition home or self-care (01) ==
PROVIDERS: PCP Family Medicine; Visit Provider Internal Medicine Cardiovascular Disease
DX: R94.39 Abnormal result of other cardiovascular function study (principal)
CPT/HCPCS: 36415; 78452; 93017; 96374; A9500

== ENCOUNTER → 2024-07-14 14:00 | Outpatient (BNVA) | payer OTHER, SELFPAY | PROVIDERS: PCP Family Medicine; Visit Provider Family Medicine | DX: Z00.00 Encounter for general adult medical examination without abnormal findings (principal); E55.9 Vitamin D deficiency, unspecified; I10 Essential (primary) hypertension | CPT/HCPCS: 80053; 80061; 82306; 85025 ==

== ENCOUNTER 2024-08-20 08:26 | Day surgery (SDC) | payer OTHER, SELFPAY ==
[2024-08-20 08:37] VITALS: BP 161/82; PULSE 56; RESP 18; TEMP 36.3; O2SAT 97; BMI 36.1
[2024-08-20] MEDS: sodium chloride 0.9% 1,000 ML 30 ML IV (08:47)
--- NOTE | 2024-08-20 09:20 | ANES.PREANE2 ---
Pre-Anesthetic Assessment Height/Weight: Height 1.75 m Weight 111.13 kg Temp Pulse Resp BP Pulse Ox O2 Del Method 97.4 F L 56 L 18 161/82 97 Room Air 08/20/24 08:37 08/20/24 08:37 08/20/24 08:37 08/20/24 08:37 08/20/24 08:37 08/20/24 08:37 Preop Diagnosis: screening Operation Date: 08/20/24 09:30 Proposed Procedures p Colonoscopy 12429, G0121, Z12.11(Not Applicable) - Edward Gomez DO Familial anesthetic complications: none Was Beta Emre taken within 24 hours: N/A Was Clonidine taken within 24 hours: N/A Last intake: Intake Last Liquid Date 08/19/24 Last Liquid Time 22:00 Last Solid Date 08/18/24 Last Solid Time 21:00 Social No alcohol and No tobacco Exam alert and oriented x 3 Airway Submandibular: within normal limits Cervical ROM: within normal limits Mallampati: Class III Dentition: full Pulmonary Sleep Apnea CV/HEM Stable Angina (pt reports no chest pain since cardiology started her on Imdur. abnormal stress test-pt states they told her she has scarring.) and Hypertension None reported Hepatic None reported GI None reported Metabolic None reported Musc/skel None reported Neuropsych Cerebrovascular Accident (TIA in 2019- no resdiual) Anesthetic Plan ASA status: 3 Anesthesia: Anesthesia Evaluation and MAC Medications/Allergies Home Medications Medication Instructions Recorded Confirmed Last Taken Type fluticasone propionate 50 1 spray intranasal DAILY PRN 10/29/23 08/18/24 08/17/24 Rx mcg/actuation nasal allergy symptoms #16 grams spray,suspension (Flonase Allergy Relief) CPAP supplies #1 ea 07/14/24 07/28/24 Unknown Rx amlodipine 5 mg tablet 5 mg PO DAILY #30 tabs 07/14/24 08/18/24 08/19/24 Rx aspirin 81 mg tablet,delayed 81 mg PO DAILY #30 tabs 07/14/24 08/18/24 08/17/24 Rx release (Adult Aspirin Regimen) azelastine 137 mcg (0.1 %) nasal 1 spray intranasal DAILY PRN Nasal 07/14/24 08/18/24 08/17/24 History spray Congestion cetirizine 10 mg tablet 10 mg PO DAILY PRN Allergy Symptoms 07/14/24 08/18/24 08/19/24 History isosorbide mononitrate 30 mg 30 mg PO DAILY #30 tabs 07/14/24 08/18/24 08/19/24 Rx tablet,extended release 24 hr metoprolol tartrate 25 mg tablet 25 mg PO DAILY #30 tabs 07/14/24 08/18/24 08/19/24 Rx Allergies Allergy/AdvReac Type Severity Reaction Status Date / Time Penicillins Allergy Unknown anaphylaxsi Verified 07/28/24 08:37 s Current Medications Generic Name Dose Route Start Last Admin Trade Name Freq PRN Reason Stop Dose Admin Sodium Chloride 1,000 mls @ 30 mls/hr 08/20/24 08:30 08/20/24 08:47 Sodium Chloride 0.9% IV 08/21/24 08:29 30 mls/hr .Q24H GLO Administration PFSH Anesthesia Surgical History History of foot surgery right History of cholecystectomy open Family History Father Congestive heart failure (CHF) Brother Hypertension Mother Diabetes, Onset Age: 80 Social History Smoking and tobacco/nicotine status: never used tobacco/nicotine Alcohol intake: never Substance/Drug Use: never Household members: spouse Marital status: Number of children: 3 Number of grandchildren: 1 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
--- NOTE | 2024-08-20 09:25 | W.PM.OPSUD ---
Surgery/Procedure H&P Update DATE OF PROCEDURE: August 20, 2024 DATE H&P PERFORMED: 07/28/24 H&P UPDATE INFORMATION: I have reviewed H&P completed within last 30 days, I have examined patient prior to procedure and No changes to prior documentation PLANNED PROCEDURE: Operation Date: 08/20/24 09:30 Proposed Procedures p Colonoscopy 99300, G0121, Z12.11(Not Applicable) - Edward Gomez, DO
[2024-08-20 09:40] VITALS: BP 127/71; PULSE 60; RESP 18; TEMP 36.1; O2SAT 98
[2024-08-20 09:55] VITALS: BP 126/70; PULSE 51; RESP 18; O2SAT 97
--- NOTE | 2024-08-20 10:10 | ANE.PACU2 ---
Inpatient post-anesthesia follow up: Airway intact: Yes Vital signs: Temperature 97.0 F Pulse Rate 51 Respiratory Rate 18 Blood Pressure 126/70 Pulse Oximetry 97 Oxygen Delivery Me thod Room Air Oxygen Flow Rate Fraction of Inspir ed Oxygen Hydration adequate: Yes Nausea and vomiting: No Pain level: 1 Mental status: Baseline
== END 2024-08-20 10:10 | disposition home or self-care (01) ==
PROVIDERS: PCP Family Medicine; Visit Provider Surgery
PROC: 0DJD8ZZ Inspection of Lower Intestinal Tract, Via Natural or Artificial Opening Endoscopic (ICD-10-PCS; CPT 45378; principal; 2024-08-20 09:30)
DX: Z12.11 Encounter for screening for malignant neoplasm of colon (principal); G47.30 Sleep apnea, unspecified; Z86.73 Personal history of transient ischemic attack (TIA), and cerebral infarction without residual deficits; Z79.82 Long term (current) use of aspirin; I10 Essential (primary) hypertension
CPT/HCPCS: 45378; J2704; J7030

== ENCOUNTER 2025-03-10 12:31 | Outpatient (CLI) | payer OTHER, SELFPAY ==
--- NOTE | 2025-03-10 12:36 | MM_ITS ---
WS: [id number] BILATERAL 3D TOMOSYNTHESIS DIGITAL SCREENING MAMMOGRAPHY WITH CAD CLINICAL INFORMATION: SCREENING HISTORY: Screening mammogram. No current complaints. COMPARISON: 2023 TECHNIQUE: Bilateral CC and MLO views. FINDINGS: Scattered fibroglandular densities bilaterally. No suspicious focal mass, asymmetry, calcifications, or architectural distortion. No evidence of malignancy. Few tiny incidental calcifications. MM/MM scr tomosynthesis [id number] IMPRESSION: DENSITY: There are scattered areas of fibroglandular density. BI-RADS: 2 - Benign. FOLLOW UP: 1 Year Follow-up Recommend return to annual screening mammography.
== END 2025-03-10 12:32 | disposition home or self-care (01) ==
PROVIDERS: PCP Family Medicine; Visit Provider Family Medicine
DX: Z12.31 Encounter for screening mammogram for malignant neoplasm of breast (principal); R92.323 Mammographic fibroglandular density, bilateral breasts
CPT/HCPCS: 77063; 77067

== ENCOUNTER → 2025-04-14 14:26 | Outpatient (BNVA) | payer OTHER, SELFPAY | PROVIDERS: PCP Family Medicine; Visit Provider Family Medicine | DX: I10 Essential (primary) hypertension (principal); R60.0 Localized edema; E55.9 Vitamin D deficiency, unspecified | CPT/HCPCS: 80053; 80061; 82306; 84439; 84443; 84481; 85025 ==

== ENCOUNTER 2025-04-24 09:35 | Outpatient (CLI) | payer OTHER, SELFPAY ==
--- NOTE | 2025-04-24 10:00 | USR_ITS ---
PROCEDURE INFORMATION: Exam: US Soft Tissue Head and Neck, TI-RADS Exam date and time: 04/24/2025 9:57 AM Age: 59 years old Clinical indication: Abnormal findings; Other abnormal lab; New hyperthyroidism TECHNIQUE: Imaging protocol: Real-time ultrasound scan of the neck with image documentation. Exam focused on the thyroid. COMPARISON: CT head wo con* [id number] 12/03/2019 12:59 PM FINDINGS: Right thyroid lobe: No nodules. Heterogeneous echotexture. Right thyroid lobe measures 1.8 x 1.9 x 4.3 cm (6.8 mL). Left thyroid lobe: No nodules. Heterogeneous echotexture. Left thyroid lobe measures 3.8 x 1.6 x 1.9 cm (5.5 mL). Isthmus: Not thickened. LESION 1: Thyroid nodule 1 Size: 1.0 x 0.5 x 0.9 cm Thyroid nodule 1 Location: Mid left thyroid lobe Thyroid nodule 1 Composition: Solid Thyroid nodule 1 Echogenicity: Hypoechoic Thyroid nodule 1 Shape: Wider than tall Thyroid nodule 1 Margins: Smooth Thyroid nodule 1 Echogenic foci: None Thyroid nodule 1 Points: 4 Lymph nodes: Prominent left cervical lymph node measuring 0.6 x 0.5 x 1.8 cm retains its fatty hilum. Similar-appearing 0.6 x 0.4 x 1.5 cm left cervical lymph node. Additional smaller lymph nodes are seen. US/US thyroid [id number] IMPRESSION: 1. 1.0 cm left thyroid nodule. TI-RADS category TR4, Moderately Suspicious. Follow-up thyroid ultrasound at 1, 2, 3, and 5 years is recommended. (Reference: Kimberly) 2. A few prominent left cervical lymph nodes may be reactive. Consider follow-up ultrasound in 2-3 months to document stability. 3. Heterogeneous thyroid echotexture can be seen with thyroiditis. REFERENCES: Kimberly FN, Lilian WD, Russell EG et al. ACR Thyroid Imaging, Reporting and Data System (TI-RADS): White Paper of the ACR TI-RADS Committee. J Am Dari Radiol. 2017; 14: 587-595.
== END 2025-04-24 09:36 | disposition home or self-care (01) ==
LOC: RAD 09:36
PROVIDERS: PCP Family Medicine; Visit Provider Family Medicine
DX: E05.10 Thyrotoxicosis with toxic single thyroid nodule without thyrotoxic crisis or storm (principal)
CPT/HCPCS: 76536

== ENCOUNTER 2025-06-30 12:36 | Outpatient (CLI) | payer OTHER, SELFPAY | END 2025-06-30 12:37 | disposition home or self-care (01) | LOC: LAB 12:38 | PROVIDERS: PCP Family Medicine; Visit Provider Internal Medicine | DX: E05.90 Thyrotoxicosis, unspecified without thyrotoxic crisis or storm (principal); I10 Essential (primary) hypertension; D34 Benign neoplasm of thyroid gland; R76.0 Raised antibody titer | CPT/HCPCS: 36415; 83516; 86376; 86800 ==

== ENCOUNTER → 2025-07-03 11:48 | Outpatient (BNVA) | payer OTHER, SELFPAY | PROVIDERS: PCP Family Medicine; Referring Provider Family Medicine; Visit Provider Internal Medicine | DX: E05.90 Thyrotoxicosis, unspecified without thyrotoxic crisis or storm (principal) | CPT/HCPCS: 36415; 84439; 84443; 84480 ==

== ENCOUNTER 2025-07-13 08:19 | Outpatient (CLI) | payer OTHER, SELFPAY ==
--- NOTE | 2025-07-13 08:30 | US_ITS ---
WS: [id number] INDICATION: Follow-up cervical lymph nodes TECHNIQUE: Ultrasound soft tissue neck Comparison 04/24/2025 FINDINGS: Ultrasound soft tissue neck 3 LEFT cervical chain lymph nodes are again noted. These are slightly prominent but stable in appearance compared to previous probably benign. No new findings.. No other suspicious findings. US/US soft tissue head neck [id number] IMPRESSION: 3 stable slightly prominent cervical lymph nodes probably benign.
== END 2025-07-13 08:20 | disposition home or self-care (01) ==
PROVIDERS: PCP Family Medicine; Visit Provider Family Medicine
DX: R59.0 Localized enlarged lymph nodes (principal)
CPT/HCPCS: 76536

== ENCOUNTER → 2025-08-31 11:12 | Outpatient (BNVA) | payer OTHER, SELFPAY | PROVIDERS: PCP Family Medicine; Visit Provider Family Medicine | DX: E05.90 Thyrotoxicosis, unspecified without thyrotoxic crisis or storm (principal) | CPT/HCPCS: 84439; 84443 ==

== ENCOUNTER → 2025-09-04 08:53 | Outpatient (BNVA) | payer OTHER, SELFPAY | PROVIDERS: PCP Family Medicine; Visit Provider Family Medicine | DX: I10 Essential (primary) hypertension (principal) | CPT/HCPCS: 80048 ==